=== PATIENT | male | born 1970 ===

== ENCOUNTER 2016-12-11 21:23 | Emergency (ER) | payer SELFPAY ==
[~2016-12-11] VITALS: Ht 160 cm; Wt 59.1 kg
[2016-12-11 22:30] VITALS: BP 135/85
== END 2016-12-11 23:38 | disposition home or self-care (01) ==
LOC: EMS 21:26
DX: F43.21 Adjustment disorder with depressed mood (principal); Z59.0 Homelessness
CPT/HCPCS: 99285